=== PATIENT | male | born 1985 | race Two or more races ===

== ENCOUNTER → 2020-06-23 | Emergency (ER) | payer OTHER ==
[~2020-06-23] VITALS: Ht 165.1 cm; Wt 108.0 kg
[~2020-06-23] MED LIST: ACETAMINOPHEN 500 MG TAB PO ONE; METHOCARBAMOL 500 MG TAB PO ONE
[2020-06-23 12:50] VITALS: BP 122/73
== END | disposition home or self-care (01) ==
LOC: ER 12:05
DX: S22.089A Unspecified fracture of T11-T12 vertebra, initial encounter for closed fracture (principal); S32.019A Unspecified fracture of first lumbar vertebra, initial encounter for closed fracture; X50.0XXA Overexertion from strenuous movement or load, initial encounter; Y93.89 Activity, other specified; Y92.69 Other specified industrial and construction area as the place of occurrence of the external cause; Y99.8 Other external cause status
CPT/HCPCS: 72070; 72100